=== PATIENT | female | born 1975 | race Two or more races ===

== ENCOUNTER 2024-08-01 01:21 | Emergency (ER) | payer OTHER ==
[~2024-08-01] VITALS: Ht 170.2 cm; Wt 122.3 kg
[2024-08-01 01:38] VITALS: TEMP 36.9; O2SAT 98
[2024-08-01 02:22] LABS: BASOPHILS % 0.4 % (0.0-2.0); EOSINOPHILS % 1.8 % (0.0-5.0); HEMATOCRIT. 39.6 % (36.0-48.0); MEAN CORPUSCULAR HEMOGLOBIN 28.5 pg (28.0-32.0); MEAN CORPUSCULAR HGB CONC 32.7 g/dL (31.0-37.0); MEAN PLATELET VOLUME 8.4 fl (7.4-10.4); MONOCYTES % 8.7 % (2.0-8.0); NEUTROPHILS % 56.1 % (40.0-76.0); PLATELET 297 x1000/uL (130-400); RED BLOOD CELL COUNT 4.56 mill/uL (4.2-5.4); RED CELL DISTRIBUTION WIDTH 14.1 % (11.6-14.6); WHITE BLOOD COUNT 6.7 x1000/uL (4.5-11.0)
[2024-08-01 02:42] LABS: TROPONIN I HIGH SENSITIVITY < 4 ng/L (3.0-34)
[2024-08-01 04:01] LABS: CHLORIDE 107 mEq/L (98-107); POTASSIUM 3.7 mEq/L (3.5-5.1); SODIUM 140 mEq/L (136-145)
[2024-08-01 04:02] LABS: CARBON DIOXIDE 21 mEq/L (21-32)
[2024-08-01 04:03] LABS: CALCIUM 9.3 mg/dL (8.7-10.4)
[2024-08-01 04:07] LABS: CREATININE 0.7 mg/dL (0.6-1.0); GLUCOSE 229 mg/dL (70-105)
[2024-08-01 04:08] LABS: UREA NITROGEN BLOOD 8 mg/dL (9-23)
[2024-08-01 04:09] LABS: ALANINE AMINOTRANSFERASE 26 IU/L (10-49); ALBUMIN 4.1 g/dL (3.2-4.8); ASPARTATE AMINOTRANSFERASE 17 IU/L (<34)
[2024-08-01 04:10] LABS: BILIRUBIN TOTAL 0.3 mg/dL (0.1-1.0); PROTEIN TOTAL 7.1 g/dL (6.0-8.3)
[2024-08-01] MEDS: ACETAMINOPHEN WITH CODEINE 300/30MG TABLET PO ONE (06:07)
[2024-08-01 06:47] LABS: TROPONIN I HIGH SENSITIVITY < 4 ng/L (3.0-34)
[2024-08-01 06:51] LABS: CLARITY URINE CLOUDY (CLEAR); COLOR URINE YELLOW (YELLOW); GLUCOSE URINE NEGATIVE (NEGATIVE); KETONES URINE TRACE (NEGATIVE); LEUKOCYTE ESTERASE URINE 1+ (NEGATIVE); NITRITE URINE NEGATIVE (NEGATIVE); OCCULT BLOOD URINE 3+ (NEGATIVE); PROTEIN URINE 1+ (NEGATIVE); SPECIFIC GRAVITY URINE 1.027 (1.005-1.030); UROBILINOGEN URINE 0.2 E.U./dL (0.2-1.0)
[2024-08-01] MEDS ORDERED: TOPUD PO (07:04)
[2024-08-01 07:10] VITALS: BP 132/68; PULSE 73; RESP 18; O2SAT 98
[2024-08-01 07:12] LABS: BACTERIA URINE TRACE; RBC URINE TNTC /hpf (0-2); SQUAMOUS EPITHELIAL CELL URINE 1+ /lpf (RARE/1+)
== END 2024-08-01 07:12 | disposition home or self-care (01) ==
LOC: ER 01:32
DX: R07.89 Other chest pain (principal); Z90.49 Acquired absence of other specified parts of digestive tract
CPT/HCPCS: 36415; 71045; 80053; 81003; 84484; 85025; 93005; 99285